=== PATIENT | male | born 1985 | race African-American/Black ===

== ENCOUNTER 2017-03-19 18:33 | Inpatient (IN) | payer MEDICAID, OTHER ==
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
[2017-03-19] MEDS ORDERED: HYDROmorphONE/DILAUDID 1 MG/ML SYR IVP PRN (22:42)
[2017-03-19] MEDS ORDERED: ONDANSETRON DISINTEGRATING 4 MG TAB PO PRN (22:42)
[2017-03-19] MEDS ORDERED: ONDANSETRON 4 MG/2 ML VIAL IVP PRN (22:42)
[2017-03-19] MEDS ORDERED: KETOROLAC 30 MG/1 ML SDV IVP PRN (22:44)
--- NOTE | 2017-03-19 22:47 | PDGENHP ---
History and Physical - Chief Complaint knee pain - History of Present Illness The patient is a 32 year old male with no significant PMH who presented to the ED with bilateral knee pain. Patient states he was playing basketball this evening when he attempted to jump to dunk the basketball. He reports bilateral knee flexion, then jumping and immediately felt a popping sensation and immediate pain in first his L knee, then his R knee. He fell to the floor and when he looked down at his legs he saw both patellas in his mid thigh region, well above where they are normally located. He also could not extend either lower leg or walk. He was then taken to the ED for further evaluation. He denies any ankle, hip or foot pain. He denies any obvious twisting motions with his jump. On arrival to the ED, patient was afebrile and hemodynamically stable. His exam was significant for bilaterally high riding patellas with step off present. X- rays confirmed bilateral patellar tendon rupture. Ortho was contacted and recommended MRI of b/l knees and surgical correction in AM. He was then admitted to the hospitalist service for further management. History Information - Allergies/Home Medication List Allergies/Adverse Reactions: No Known Allergies Allergy (Unverified 03/19/17 18:43) Home Medications: Melatonin [Melatonin 5 mg] 5 mg PO HS PRN 03/19/17 [Last Taken 02/17/17] I have personally reviewed and updated: family history, medical history, social history, surgical history - Past Medical History Additional medical history: denies - Surgical History Additional surgical history: wisdom teeth extraction - Family History Positive for: non-pertinent - Social History Smoking Status: Never smoked Alcohol Use: Occasionally Drug Use: None Additional social history: Just moved to [place] from [place]. Review of Systems ROS: 10pt was reviewed & negative except for what was stated in HPI & below Physical Exam Temp Pulse Resp BP Pulse Ox 36.5 C 74 20 125/86 H 100 03/19/17 21:27 03/19/17 21:27 03/19/17 21:27 03/19/17 21:27 03/19/17 21:27 O2 (L/minute) 0 Constitutional: no apparent distress, appears nourished, not in pain Eyes: PERRL, anicteric sclera, EOMI Ears, Nose, Mouth, Throat: moist mucous membranes, hearing normal, ears appear normal, no oral mucosal ulcers Cardiovascular: regular rate and rhythym, no murmur, rub, or gallop, pulses symmetric bilaterally, No JVD, No edema Peripheral Pulses: 2+: dorsalis-pedis (R), dorsalis-pedis (L) Respiratory: no respiratory distress, no rales or rhonchi, clear to auscultation Gastrointestinal: normoactive bowel sounds, soft, non-tender abdomen, no palpable masses Genitourinary: no bladder fullness, no bladder tenderness Skin: warm, normal color, no rashes or abrasions, no fluctuance, no induration, No mottled Musculoskeletal: other (bilateral knee immobilizers in place, unable to extend b /l lower legs; mild knee edema bilaterally) Neurologic: AAOx3, sensation intact bilaterally, CN II-XII Intact, No weakness, No numbness, No facial droop Psychiatric: interacting appropriately, not anxious, not encephalopathic, thought process linear Lab Data & Imaging Review Visualized and Interpreted Chest x-ray results: Yes Interpretation: Xray R+L knee: bilateral complete patellar tendon rupture. MRI knee b/l: complete patellar tendon rupture bilaterally Visualized and Interpreted EKG results: Yes EKG Interpretation: Positive for: normal sinsus rhythm Assessment & Plan Assessment: Patient is a 32-year-old male with no significant past medical history presents to the ED with bilateral knee pain and immobilization immediately after attempting to jump vertically. ED evaluation reveals bilateral patellar tendon rupture. Plan: # bilateral patellar tendon rupture This occurred after an attempted vertical leap. MRIs performed and do not reveal significant surrounding ligament damage. Given the bilateral occurrence, patient is unable to ambulate or care for himself, so he has been admitted for more immediate surgical correction. Ortho has been consulted, recommend OR in AM. Will check basic labs, EKG pre-op, continue pain control as needed and f/u ortho recommendations. # dispo: admit to inpatient service for likely > 2 MN stay #gen: NPO after midnight Full code
[2017-03-20 05:27] LABS: % IMMATURE GRANULYOCYTES 0.3 % (0.0-1.1); ABSOLUTE IMMATURE GRANULOCYTES 0.02 10^3/uL (0.00-0.10); ADD DIFF? NO; ADD MORPH? NO; ADD SCAN? NO; ATYPICAL LYMPHOCYTE FLAG 10 (0-99); FRAGMENT RBC FLAG 0 (0-99); HEMATOCRIT 40.8 % (40.0-51.0); HEMOGLOBIN 14.1 g/dL (13.7-17.5); LEFT SHIFT FLG 0 (0-99); LIPEMIA HEMOLYSIS FLAG 90 (0-99); MEAN CELL HEMOGLOBIN 28.7 pg (27.9-34.1); MEAN CELL HEMOGLOBIN CONCENTR. 34.6 g/dL (32.4-36.7); MEAN CELL VOLUME 83.1 fL (81.5-99.8); MEAN PLATELET VOLUME 9.5 fL (8.7-11.7); PLATELET CLUMPS FLAG 40 (0-99); PLATELET COUNT 224 10^3/uL (150-400); RED BLOOD CELL COUNT 4.91 10^6/uL (4.40-6.38); RED CELL DISTRIBUTION WIDTH 13.2 % (11.5-15.2)
[2017-03-20 05:34] LABS: INR 1.16 (0.83-1.16); PROTIME(PATIENT) 14.8 SEC (12.0-15.0)
[2017-03-20 05:35] LABS: ANION GAP 9 mEq/L (8-16); APTT 33.6 SEC (23.0-38.0); CALCIUM 8.8 mg/dL (8.5-10.4); CARBON DIOXIDE 22 mEq/l (22-31); CHLORIDE 109 mEq/L (97-110); CREATININE 1.1 mg/dL (0.7-1.3); GLOMERULAR FILTRATION RATE > 60; GLUCOSE 88 mg/dL (70-100); MAGNESIUM 2.2 mg/dL (1.6-2.3); POTASSIUM 3.9 mEq/L (3.5-5.2); SODIUM 140 mEq/L (134-144)
[2017-03-20] MEDS ORDERED: CEFAZOLIN 2 GM/DEXTROSE/100 ML BAG IV ONE (09:05)
[2017-03-20] MEDS ORDERED: MIDAZOLAM 2 MG/2 ML VIAL ONE (09:15)
[2017-03-20] MEDS ORDERED: fentaNYL 100 MCG/2 ML INJ ONE ×3 (09:15→11:40)
[2017-03-20] MEDS ORDERED: LIDOCAINE 2% JELLY 5 ML TUBE ONE (09:16)
[2017-03-20] MEDS ORDERED: METOCLOPRAMIDE 10 MG/2 ML VIAL ONE (09:16)
[2017-03-20] MEDS ORDERED: ONDANSETRON 4 MG/2 ML VIAL ONE (09:16)
[2017-03-20] MEDS ORDERED: PROPOFOL 200 MG/20 ML VIAL ONE (09:16)
[2017-03-20] MEDS ORDERED: BUPIVACAINE 0.5% 30 ML SDV ONE (09:17)
--- NOTE | 2017-03-20 09:56 | GCON ---
[f rep st] CONSULTATION ORTHOPEDIC CONSULTATION. REASON FOR CONSULTATION: Consultation from the emergency department for evaluation of bilateral pat ellar tendon ruptures. HISTORY: The patient is a 32-year-old gentleman who was playing basketball. Jumped up to dunk and heard a pop in both legs. Fell, complaining of pain and inability to extend legs of bilateral lower extremities. He was seen and evaluated. MRI was obtained which showed bilateral patellar tendon r uptures. PAST MEDICAL HISTORY: None. MEDICATIONS: None. PHYSICAL EXAMINATION: GENERAL: The patient is in no acute distress. Pleasant and cooperative with exam. ORTHOPEDIC: He has knee immobilizers in place. He is grossly neurovascularly intact. X-rays and MRI reviewed which shows a rupture of the bilateral patellar tendons proximally. ASSESSMENT AND PLAN: The patient is a 32-year-old gentleman with bilateral patellar tendon ruptures . Discussed risks, benefits, and operative and nonoperative intervention with the patient. Elected to proceed with bilateral patellar tendon repairs. Discussed recovery with the patient. Risks, be nefits including bleeding, infection, damage to nerves and vessels, need for further surgery, blood clots, blood clots going to his lungs and rare things like stroke, heart attack and . The kishor ent expressed understanding and informed consent was obtained. /[id number]/MODL
[2017-03-20] MEDS ORDERED: DIPHENOXYLATE/ATROPINE LOMOTIL 1 TAB PO PRN (11:14)
[2017-03-20] MEDS ORDERED: BISACODYL 10 MG SUPP PR PRN (11:14)
[2017-03-20] MEDS ORDERED: LACTULOSE 20 GM/30 ML UDCUP PO PRN (11:14)
[2017-03-20] MEDS ORDERED: PROMETHAZINE HCL 25 MG SUPPR PR PRN (11:14)
[2017-03-20] MEDS ORDERED: PHARMACY PAIN CONSULT 1 EA MISC PRN (11:14)
[2017-03-20] MEDS ORDERED: METOCLOPRAMIDE 10 MG/2 ML VIAL IVP PRN (11:14)
[2017-03-20] MEDS ORDERED: CYCLOBENZAPRINE 10 MG TAB PO PRN (11:14)
[2017-03-20] MEDS ORDERED: MAGNESIUM HYDROXIDE 30 ML UDCUP PO PRN (11:14)
--- NOTE | 2017-03-20 11:14 | POSTOPPROG ---
Post Op Note Date of Operation: 03/20/17 Surgeon: Blaire Lindo Tray Line Supervisor: Marisabel Lindo PAc Anesthesiologist: Karla Anesthesia: GET(General Endotracheal) Pre-op Diagnosis: B patella tendon rupture Post-op Diagnosis: same Indication: inability to walk Procedure: Right Patella tendon repair, Left patella tendon repair Findings: ruptured patella tendons Inf/Abcess present in the surg proc area at time of surgery?: No EBL: 50-100
[2017-03-20] MEDS ORDERED: LR 1,000 ML IV SCH (11:30)
[2017-03-20] MEDS ORDERED: HYDROmorphONE/DILAUDID 2 MG/ML INJ ONE (11:40)
[2017-03-20] MEDS ORDERED: MEPERIDINE 25 MG/ML SYR ONE (11:40)
[2017-03-20] MEDS ORDERED: KETOROLAC 30 MG/1 ML SDV ONE (12:02)
--- NOTE | 2017-03-20 12:38 | HOSPPROG ---
Hospitalist Progress Note Assessment/Plan: 32M no significant PMH presented with bilateral knee pain taht started on evening of admission. Had jumped to dunk a basketball and noted a popping sensation and immediate pain. Xr confirmed bilateral patellar tendon rupture. #. bilateral patellar tendon rupture POD o in knee immobilizers will plan PT and analgesia #. DVT ppx: low risk SCD and early mobilization #. LOS: likely at least another night for PT Subjective: Reports knee pain. No N. Objective: Vital Signs Temp Pulse Resp BP Pulse Ox 98.3 F 67 18 136/85 H 100 03/20/17 12:33 03/20/17 12:33 03/20/17 12:33 03/20/17 12:33 03/20/17 12:33 Laboratory Results 03/20/17 04:35 03/20/17 04:35 03/19/17 03/20/17 03/21/17 05:59 05:59 05:59 Intake Total 200 Output Total 725 20 Balance -525 -20 PT 14.8 SEC (12.0-15.0) 03/20/17 04:35 INR 1.16 (0.83-1.16) 03/20/17 04:35 - Physical Exam Constitutional: no apparent distress, appears nourished Eyes: PERRL, anicteric sclera Ears, Nose, Mouth, Throat: moist mucous membranes Cardiovascular: regular rate and rhythym, no murmur, rub, or gallop Respiratory: no respiratory distress, no rales or rhonchi Musculoskeletal: other (bilateral knees in wraps and immobilizers/iced) ICD10 Worksheet Patient Problems: Problems Problem Status Onset Rupture, tendon, patellar Acute
[2017-03-20] MEDS: oxyCODONE IR 5 MG TAB PO PRN ×3 (12:41→21:34)
--- NOTE | 2017-03-20 13:01 | GOP ---
[f rep st] OPERATIVE REPORT DATE OF OPERATION: 03/19/2017 SURGEON: Yojana Lindo MD FURNITURE UPHOLSTERY MECHANIC: Marisabel Lindo PA-C. Head Of English was required due to the complexity of bilateral pa tellar tendon repairs. ANESTHESIA: General. PREOPERATIVE DIAGNOSIS: Bilateral patellar tendon rupture. POSTOPERATIVE DIAGNOSIS: Bilateral patellar tendon rupture. PROCEDURE PERFORMED: 1. Right patellar tendon repair. 2. Left patellar tendon repair. FINDINGS: ESTIMATED BLOOD LOSS: Minimal. INDICATIONS: The patient is a 32-year-old male who was playing basketball, jumped, sustained bilate ral patellar tendon ruptures. Risks and benefits of operative and nonoperative interventions were d iscussed with patient and informed consent was obtained. The decision was made to proceed with the operative repair of the bilateral patellar tendons. DESCRIPTION OF PROCEDURE: The patient was identified in the preoperative holding area. He was brou ght back to the operative room. After induction of anesthesia, patient was prepped and draped in th e usual sterile fashion. Both legs were exposed. A time-out was taken for to confirm the patient, laterality of the procedure as well as antibiotic status. We started with the right leg. The leg w as elevated, tourniquet was inflated to 275 and set for a total of 47 minutes. A midline incision w as made. We identified the torn area. There was a fairly thin patellar tendon, approximately half of it attached to the patella, half of it attached to the tibial tubercle. The decision was made to proceed with a proximal and distal repair over bony bridges. Bone tolerances were made through the patellar tendon and the portion of patellar tendon that was attached to the tibial tubercle. Sutur e was Krackow suture and passed through the bone tunnels and secured in place with a suture. The di stal aspect had Krackow sutures and was placed through a tibial bone tunnel through the tibial tuber maikol. This was reinforced with multiple #5 FiberWire, 1-0 Vicryl, and running Monocryl sutures, repa iring the arthrotomy. The incision was copiously irrigated and closed in layers. A sterile dressin g was applied. An exam under anesthesia was performed and patient was found to have a stable ligame ntous exam. We then turned our attention to the left side. The tourniquet was elevated for a total of 24 minutes. We made our midline incision. This was noted to be much more straightforward with 80% of the patellar tendon being attached still to the tibial tubercle. We made bone tunnels throug h the patella, passed our Krackow sutures with #5 FiberWire through the patella, which were secured. We then sutured the remaining portion of patellar tendon to the repaired patellar tendon. Arthrot niko was repaired. We copiously irrigated and then closed in layers. TOURNIQUETS: Right tourniquet 47 minutes. Left tourniquet 24 minutes. PLAN: Was to admit the patient. He will be weightbearing as tolerated with knee immobilizers. He will need some sort of case management assistance. He is not to do any range of motion exercises fo r the first 2-3 weeks. He will follow up in the orthopedic clinic in 2-3 weeks. /[id number]/MODL
[2017-03-20] MEDS ORDERED: Melatonin [Melatonin 5 Mg] 5 MG PO PRN (17:27)
[2017-03-20] MEDS: ASPIRIN 325 MG TAB PO SCH (21:34)
[2017-03-20] MEDS: SENNOSIDES/DOCUSATE SODIUM TAB PO SCH (21:35)
[2017-03-21] MEDS: oxyCODONE IR 5 MG TAB PO PRN ×6 (00:20→20:39)
[2017-03-21] MEDS: ACETAMINOPHEN 500 MG TAB PO PRN ×2 (00:21→06:36)
[2017-03-21 05:34] LABS: HEMATOCRIT 37.7 % (40.0-51.0); HEMOGLOBIN 12.8 g/dL (13.7-17.5)
[2017-03-21] MEDS: diphenhydrAMINE 25 MG CAP PO PRN ×3 (06:37→20:40)
--- NOTE | 2017-03-21 07:05 | CPEKG ---
Heart Rate: 77 RR Interval: 779 P-R Interval: 164 QRSD Interval: 108 QT Interval: 372 QTC Interval: 421 P [place]: 49 QRS [place]: 54 T Wave [place]: 16 EKG Severity - ABNORMAL ECG - EKG Impression: SINUS RHYTHM EKG Impression: INCOMPLETE RIGHT BUNDLE BRANCH BLOCK Electronically Signed By: Josselin Carl 21-Mar-2017 07:03:52
[2017-03-21] MEDS: ASPIRIN 325 MG TAB PO SCH (08:42)
[2017-03-21] MEDS: SENNOSIDES/DOCUSATE SODIUM TAB PO SCH ×2 (08:42→20:40)
--- NOTE | 2017-03-21 11:23 | HOSPPROG ---
Hospitalist Progress Note Assessment/Plan: 32M no significant PMH presented with bilateral knee pain that started on evening of admission. Had jumped to dunk a basketball and noted a popping sensation and immediate pain. Xr confirmed bilateral patellar tendon rupture. Today is my first encounter with the patient/ chart reviewed. #. bilateral patellar tendon rupture POD #1 s/p bilateral tendon repair in knee immobilizers will plan PT and analgesia #. DVT ppx: low risk SCD and early mobilization #. LOS: pending/ PT was working with him and he was having difficulty getting oob to standing/ has 3 steps to get into his home. Will await input from PT. Subjective: Maketh is having some pain while trying to get oob. Objective: Vital Signs Temp Pulse Resp BP Pulse Ox 37.3 C 81 16 146/86 H 87 L 03/21/17 08:00 03/21/17 08:00 03/21/17 08:00 03/21/17 08:00 03/21/17 08:00 Laboratory Results 03/21/17 05:05 03/20/17 04:35 03/20/17 03/21/17 03/22/17 05:59 05:59 05:59 Intake Total 200 2900 Output Total 247 803 9893 Balance -525 1980 -1100 PT 14.8 SEC (12.0-15.0) 03/20/17 04:35 INR 1.16 (0.83-1.16) 03/20/17 04:35 - Physical Exam Constitutional: uncomfortable Eyes: PERRL Ears, Nose, Mouth, Throat: hearing normal Cardiovascular: regular rate and rhythym Respiratory: no respiratory distress Skin: warm Musculoskeletal: muscular tenderness, generalized weakness Neurologic: AAOx3 Psychiatric: interacting appropriately, not anxious, not encephalopathic ICD10 Worksheet Patient Problems: Problems Problem Status Onset Rupture, tendon, patellar Acute
--- NOTE | 2017-03-21 14:17 | SOAPPROG ---
SOAP Progress Note Assessment/Plan: Assessment: s/p B patella tendon repair doing well, some pain dressings dry NVI rec WBAT in knee immobilizer dispo per hopitalist f/u [facility] 2-3 wks will cont to follow Plan: 03/21/17 14:16 Objective: Vital Signs Temp Pulse Resp BP Pulse Ox 37.4 C 83 16 112/83 H 96 03/21/17 11:30 03/21/17 11:30 03/21/17 11:30 03/21/17 11:30 03/21/17 11:30 Laboratory Results 03/21/17 05:05 03/20/17 04:35 03/20/17 03/21/17 03/22/17 05:59 05:59 05:59 Intake Total 200 2900 Output Total 091 547 2961 Balance -525 1979 -1100 PT 14.8 SEC (12.0-15.0) 03/20/17 04:35 INR 1.16 (0.83-1.16) 03/20/17 04:35 ICD10 Worksheet Patient Problems: Problems Problem Status Onset Rupture, tendon, patellar Acute
[2017-03-22] MEDS: ACETAMINOPHEN 500 MG TAB PO PRN (00:14)
[2017-03-22] MEDS: oxyCODONE IR 5 MG TAB PO PRN ×6 (00:15→22:23)
[2017-03-22] MEDS: POLYETHYLENE GLYCOL 3350 17 GM PKT PO PRN ×2 (00:20→16:36)
[2017-03-22] MEDS: diphenhydrAMINE 25 MG CAP PO PRN (01:28)
[2017-03-22] MEDS: SENNOSIDES/DOCUSATE SODIUM TAB PO SCH ×2 (08:38→22:23)
[2017-03-22] MEDS: ASPIRIN 325 MG TAB PO SCH (08:38)
--- NOTE | 2017-03-22 15:53 | SOAPPROG ---
SOAP Progress Note Assessment/Plan: Assessment: s/p B patella tendon repair doing well, some pain dressings dry NVI rec WBAT in knee immobilizer dispo per hopitalist f/u [facility] 2-3 wks will cont to follow Plan: 03/21/17 14:16 Objective: Vital Signs Temp Pulse Resp BP Pulse Ox 36.8 C 75 14 112/74 96 03/22/17 11:57 03/22/17 11:57 03/22/17 11:57 03/22/17 11:57 03/22/17 11:57 Laboratory Results 03/21/17 05:05 03/20/17 04:35 03/21/17 03/22/17 03/23/17 05:59 05:59 05:59 Intake Total 2900 600 Output Total 920 2150 500 Balance 1980 -1550 -500 PT 14.8 SEC (12.0-15.0) 03/20/17 04:35 INR 1.16 (0.83-1.16) 03/20/17 04:35 ICD10 Worksheet Patient Problems: Problems Problem Status Onset Rupture, tendon, patellar Acute
--- NOTE | 2017-03-22 16:20 | HOSPPROG ---
Hospitalist Progress Note Assessment/Plan: 32M no significant PMH presented with bilateral knee pain that started on evening of admission. Had jumped to dunk a basketball and noted a popping sensation and immediate pain. Xr confirmed bilateral patellar tendon rupture. #. bilateral patellar tendon rupture POD #2 s/p bilateral tendon repair in knee immobilizers will plan PT and analgesia #. DVT ppx: low risk SCD and early mobilization #. LOS: family friend is arranging a hospital bed as well as equipment to help mobilize the patient. Hopefully this will be ready tomorrow. Subjective: Patient is complaining of some pain around the knee area. Objective: Vital Signs Temp Pulse Resp BP Pulse Ox 36.6 C 81 15 130/87 H 96 03/22/17 15:57 03/22/17 15:57 03/22/17 15:57 03/22/17 15:57 03/22/17 15:57 Laboratory Results 03/21/17 05:05 03/20/17 04:35 03/21/17 03/22/17 03/23/17 05:59 05:59 05:59 Intake Total 2900 600 Output Total 920 2150 500 Balance 1980 -1550 -500 PT 14.8 SEC (12.0-15.0) 03/20/17 04:35 INR 1.16 (0.83-1.16) 03/20/17 04:35 - Physical Exam Constitutional: no apparent distress, appears nourished Eyes: PERRL Ears, Nose, Mouth, Throat: hearing normal Cardiovascular: regular rate and rhythym Respiratory: no respiratory distress Gastrointestinal: normoactive bowel sounds Skin: warm Musculoskeletal: muscular tenderness, generalized weakness Neurologic: AAOx3 Psychiatric: interacting appropriately, not anxious ICD10 Worksheet Patient Problems: Problems Problem Status Onset Rupture, tendon, patellar Acute
[2017-03-23] MEDS: oxyCODONE IR 5 MG TAB PO PRN ×4 (02:53→16:29)
[2017-03-23 08:29] VITALS: BP 119/70; PULSE 84; RESP 18; TEMP 98.7; O2SAT 93
[2017-03-23] MEDS: ASPIRIN 325 MG TAB PO SCH (08:55)
[2017-03-23] MEDS: SENNOSIDES/DOCUSATE SODIUM TAB PO SCH (08:55)
--- NOTE | 2017-03-23 09:49 | HOSPPROG ---
Hospitalist Progress Note Assessment/Plan: 32M no significant PMH presented with bilateral knee pain that started on evening of admission. Had jumped to dunk a basketball and noted a popping sensation and immediate pain. Xr confirmed bilateral patellar tendon rupture. #. bilateral patellar tendon rupture POD #3 s/p bilateral tendon repair in knee immobilizers will plan PT and analgesia #. DVT ppx: low risk SCD and early mobilization #. LOS: dc today as long as supplies are available Subjective: Makecrow is feeling well today. Objective: Vital Signs Temp Pulse Resp BP Pulse Ox 37.1 C 84 18 119/70 93 03/23/17 08:00 03/23/17 08:00 03/23/17 08:00 03/23/17 08:00 03/23/17 08:00 Laboratory Results 03/21/17 05:05 03/20/17 04:35 03/22/17 03/23/17 03/24/17 05:59 05:59 05:59 Intake Total 600 Output Total 2150 500 Balance -1550 -500 PT 14.8 SEC (12.0-15.0) 03/20/17 04:35 INR 1.16 (0.83-1.16) 03/20/17 04:35 - Physical Exam Constitutional: no apparent distress, appears nourished, not in pain Eyes: PERRL Ears, Nose, Mouth, Throat: hearing normal Skin: warm Musculoskeletal: generalized weakness Neurologic: AAOx3 Psychiatric: interacting appropriately ICD10 Worksheet Patient Problems: Problems Problem Status Onset Rupture, tendon, patellar Acute
--- NOTE | 2017-03-23 14:36 | GDS ---
[f rep st] DISCHARGE SUMMARY DISCHARGE DIAGNOSIS: Bilateral patellar tendon rupture. HISTORY: Briefly, the patient is a 32-year-old gentleman who was out playing basketball. He jumped to dunk the basketball and heard a pop in both legs. He was complaining of pain and inability to extend his legs of the bilateral lower extremities. He had an MRI that was obtained which showed bilateral patellar tendon rupture. He was seen and evaluated by Dr. Alexy Lindo, and on 03/20/2017 he had a bilateral patellar tendon repair. He overall has done well with surgery in regard to pain. The biggest issue is he cannot bend his knees and was unable to mobilize. Today he will be discharged home with help at home. A hospital bed and railing have been arranged. His brother will also help him ambulate. He will further follow up with Dr. Lindo in the outpatient setting. CONDITION AT DISCHARGE: Stable. Blood pressure is 119/70, heart rate is 84, respiratory rate is 18, O2 saturation on room air 92%, temperature 37.1 Celsius. MEDICATIONS AT DISCHARGE: Please see the EMR. DISCHARGE INSTRUCTIONS: 1. To wear the knee immobilizers. 2. To follow up with Dr. Lindo in 2-3 weeks. 3. Take the Oxy IR for pain. Do not drink or drive while on this medication. 4. To cover incision dressing for showers. 5. Removed incision dressings 2 weeks from surgery. Leave Steri-Strips in place. /[id number]/MODL MTDD
[2017-03-23] MEDS: ACETAMINOPHEN 500 MG TAB PO PRN (16:29)
== END 2017-03-23 18:31 | disposition home or self-care (01) | DRG 502 ==
LOC: F3N 21:26
PROVIDERS: ADMIT Internal Medicine; ATTEND Internal Medicine
DX: S86.811A Strain of other muscle(s) and tendon(s) at lower leg level, right leg, initial encounter (principal); S86.812A Strain of other muscle(s) and tendon(s) at lower leg level, left leg, initial encounter; Y93.67 Activity, basketball
CPT/HCPCS: 97161-GP; 97166-GO; 97530-GP; 97535-GO; J0690; J1170; J1885; J2250; J2405; J2704; J2765; J3010; L1830